=== PATIENT | female | born 1995 | race Caucasian/White ===

== ENCOUNTER 2017-06-16 15:24 | Emergency (ER) | payer OTHER ==
[~2017-06-16] VITALS: Ht 172.7 cm; Wt 124.7 kg
[~2017-06-16 15:24] MED LIST: CODACE30 PO; CRUTCH3 USE; CRUTCH4 USE; Esgic Tablet1 EACH PO; HYDACE5 PO; HYDACE5325 PO; LEVSOD100 PO; NAPR500 PO; PROC10 PO; RXCODACET PO; SERT25 PO; TRAZ50 PO
[2017-06-16 16:36] LABS: Source, Urine Clean Catch
[2017-06-16 16:59] LABS: Appearance, Urine Hazy (Clear); Bilirubin, Urine Neg (Neg); Blood, Urine Neg (Neg); Color, Urine Yellow (P-Yellow); Glucose Qualitative, Urine Neg (Neg); Ketones, Urine 1+ (Neg); Leukocyte Esterase, Urine 3+ (Neg); Nitrite, Urine Neg (Neg); Protein, Urine Neg (Neg); Urobilinogen, Urine 1+ (Normal)
[2017-06-16 17:22] LABS: Amorphous Light (0-Heavy); Bacteria Few /hpf; Red Blood Cells, Urine Not Seen /hpf (0-2); Squamous Epithelial Cells Mod /hpf (Few)
[2017-06-16] MEDS ORDERED: LIDO700A20 TOP (17:53)
[2017-06-16] MEDS ORDERED: Zofran Odt4 MG SL (18:24)
== END 2017-06-16 17:59 | disposition home or self-care (01) ==
LOC: ER 15:24
PROVIDERS: Physician Assistant
DX: G89.29 Other chronic pain (principal); M54.9 Dorsalgia, unspecified; F32.9 Major depressive disorder, single episode, unspecified; E03.9 Hypothyroidism, unspecified; Z88.0 Allergy status to penicillin; Z88.1 Allergy status to other antibiotic agents; Z88.2 Allergy status to sulfonamides; Z79.899 Other long term (current) drug therapy
CPT/HCPCS: 81001; 81025; 87086; 96372; 99283; J1885

== ENCOUNTER 2021-08-08 17:54 | Emergency (ER) | payer BC, OTHER ==
[~2021-08-08] VITALS: Ht 172.7 cm; Wt 88.9 kg
[~2021-08-08 17:54] MED LIST changes: +ALBU90OI; +FAMO20; +IRON150C; +LIDO700A20 TOP; +Promethazine12.5 M1; +Synthroid88 MCG; +Zofran Odt4 MG SL
[2021-08-08] MEDS ORDERED: SYNTHROID50 MC1 PO (19:33)
[2021-08-08] MEDS ORDERED: Adipex-P37.5 M1 PO (19:33)
[2021-08-08] MEDS ORDERED: ONDA4 PO (21:16)
[2021-08-08] MEDS ORDERED: Norco 5-325 Ta1 EACH PO (21:16)
== END 2021-08-08 21:21 | disposition home or self-care (01) ==
LOC: ER 17:54
DX: S83.92XA Sprain of unspecified site of left knee, initial encounter (principal); W10.9XXA Fall (on) (from) unspecified stairs and steps, initial encounter; E03.9 Hypothyroidism, unspecified; Z88.0 Allergy status to penicillin; Z88.2 Allergy status to sulfonamides; Z88.5 Allergy status to narcotic agent; Z79.899 Other long term (current) drug therapy
CPT/HCPCS: 73562-LT; A9270

== ENCOUNTER 2021-08-12 08:46 | Emergency (ER) | payer BC, OTHER ==
[~2021-08-12] VITALS: Ht 172.7 cm; Wt 88.9 kg
[~2021-08-12 08:46] MED LIST changes: +Adipex-P37.5 M1 PO; +Norco 5-325 Ta1 EACH PO; +ONDA4 PO; +SYNTHROID50 MC1 PO
== END 2021-08-12 11:55 | disposition home or self-care (01) ==
LOC: ER 08:46
DX: M25.562 Pain in left knee (principal); W19.XXXA Unspecified fall, initial encounter; E03.9 Hypothyroidism, unspecified; Z88.0 Allergy status to penicillin; Z88.2 Allergy status to sulfonamides; Z88.5 Allergy status to narcotic agent; Z79.899 Other long term (current) drug therapy
CPT/HCPCS: 73564; 99283-25

== ENCOUNTER → 2024-06-11 | Outpatient (CLI) | payer BC ==
[2024-06-13 15:12] LABS: FAT, FECAL - NEUTRAL Normal (Normal); FAT, FECAL - SPLIT Normal (Normal)
== END ==
LOC: LAB SHORT 05:00 → LAB 05:00
PROVIDERS: Internal Medicine Endocrinology, Diabetes & Metabolism
DX: R19.7 Diarrhea, unspecified (principal)
CPT/HCPCS: 82705